=== PATIENT | female | born 1995 | race Hispanic/Latino ===

== ENCOUNTER 2017-07-19 08:38 | Day surgery (SDC) | payer BC ==
[2017-07-18 14:27] VITALS: BMI 15.5
[2017-07-19] MEDS ORDERED: Lactated Ringer's 1,000 ML IV ONE ×2 (11:55)
[2017-07-19] MEDS ORDERED: Propofol 10 mg/ml Inj (20 ML) ONE (12:06)
[2017-07-19] MEDS ORDERED: Lidocaine Hydrochloride 5 ML INJ ONE (12:06)
[2017-07-19] MEDS ORDERED: Lactated Ringer's 500 ML IV SCH (12:30)
[2017-07-19 13:47] VITALS: TEMP 97
[2017-07-19 14:33] VITALS: BP 109/76; PULSE 61; RESP 16; O2SAT 99
== END 2017-07-19 14:10 | disposition home or self-care (01) ==
LOC: C.ENDO 08:38
PROVIDERS: ATTEND Internal Medicine Gastroenterology
DX: K59.09 Other constipation (principal); R10.13 Epigastric pain; K62.6 Ulcer of anus and rectum; K64.0 First degree hemorrhoids; K29.70 Gastritis, unspecified, without bleeding; F98.8 Other specified behavioral and emotional disorders with onset usually occurring in childhood and adolescence; F32.9 Major depressive disorder, single episode, unspecified; Z79.899 Other long term (current) drug therapy; F17.210 Nicotine dependence, cigarettes, uncomplicated
CPT/HCPCS: 43239; 45380; 84703; 88305; 88313; 88342; J2704; J7120